=== PATIENT | female | born 1975 | race Caucasian/White ===

== ENCOUNTER → 2017-06-21 | Outpatient (CLI) | payer OTHER ==
[~2017-06-21] MED LIST: PERCOCET 325 MG1 TA2 PO; PRILOSEC 20MG20 MG PO; YAZ 28 3 MG-0.01 TAB PO
== END ==
LOC: MC.RAD 07:40
DX: Z12.31 Encounter for screening mammogram for malignant neoplasm of breast (principal)

== ENCOUNTER → 2018-07-02 | Outpatient (CLI) | payer BC | LOC: MC.RAD 09:20 | DX: Z12.31 Encounter for screening mammogram for malignant neoplasm of breast (principal) ==

== ENCOUNTER → 2019-01-27 | Outpatient (CLI) | payer BC | LOC: COL.RAD 07:43 | DX: E28.310 Symptomatic premature menopause (principal); N39.3 Stress incontinence (female) (male); E03.9 Hypothyroidism, unspecified; E55.9 Vitamin D deficiency, unspecified; N94.10 Unspecified dyspareunia; N83.201 Unspecified ovarian cyst, right side; Z79.890 Hormone replacement therapy ==

== ENCOUNTER → 2019-08-15 | Outpatient (CLI) | payer BC | LOC: MC.RAD 06-24 09:00 | DX: Z12.31 Encounter for screening mammogram for malignant neoplasm of breast (principal) ==

== ENCOUNTER → 2020-08-30 | Outpatient (CLI) | payer BC | LOC: MC.RAD 07:00 | DX: Z12.31 Encounter for screening mammogram for malignant neoplasm of breast (principal) ==

== ENCOUNTER → 2022-07-10 | Outpatient (CLI) | payer BC | LOC: MC.RAD 06:58 | DX: N63.20 Unspecified lump in the left breast, unspecified quadrant (principal) ==

== ENCOUNTER → 2024-09-01 | Outpatient (CLI) | payer BC | LOC: MC.RAD 07:14 | DX: Z12.31 Encounter for screening mammogram for malignant neoplasm of breast (principal) ==